=== PATIENT | female | born 1985 | race Caucasian/White ===

== ENCOUNTER 2020-04-22 17:27 | Emergency (ER) | payer SELFPAY ==
[~2020-04-22] VITALS: Ht 157.4 cm; Wt 68.0 kg
[2020-04-22] MEDS ORDERED: ANAPROX DS550 MG PO (18:05)
[2020-04-22] MEDS ORDERED: METHOCARBAMOL500 M1 PO (18:05)
== END 2020-04-22 18:14 | disposition home or self-care (01) ==
LOC: ED 17:27
DX: S16.1XXA Strain of muscle, fascia and tendon at neck level, initial encounter (principal); Z88.8 Allergy status to other drugs, medicaments and biological substances; W18.49XA Other slipping, tripping and stumbling without falling, initial encounter; Y93.89 Activity, other specified; Y92.89 Other specified places as the place of occurrence of the external cause; Y99.8 Other external cause status

== ENCOUNTER 2020-07-03 15:45 | Emergency (ER) | payer SELFPAY ==
[~2020-07-03] VITALS: Ht 157.4 cm; Wt 81.6 kg
[~2020-07-03 15:45] MED LIST: ANAPROX DS550 MG PO; METHOCARBAMOL500 M1 PO
[2020-07-03] MEDS ORDERED: ZYRTEC10 M2 PO (16:24)
[2020-07-03] MEDS ORDERED: AMOXICILLIN500 M2 PO (16:24)
== END 2020-07-03 16:29 | disposition home or self-care (01) ==
LOC: ED 15:45
DX: J03.90 Acute tonsillitis, unspecified (principal); F17.200 Nicotine dependence, unspecified, uncomplicated; Z88.1 Allergy status to other antibiotic agents

== ENCOUNTER 2020-10-25 16:13 | Emergency (ER) | payer OTHER ==
[~2020-10-25] VITALS: Ht 160 cm; Wt 72.6 kg
[~2020-10-25 16:13] MED LIST changes: +AMOXICILLIN500 M2 PO; +ZYRTEC10 M2 PO
[2020-10-25 16:49] LABS: BASO % 0.4 % (0.0-1.0); EOS # 0.1 10*3/uL (0.0-0.4); EOS % 0.7 % (1.0-4.0); LYMPH # 2.5 10*3/uL (1.3-4.4); LYMPH % 21.7 % (27.0-41.0); MEAN CELL VOLUME 91.5 fl (81.0-99.0); MEAN CORPUSCULAR HGB 31.1 pg (27.0-31.0); MEAN PLATELET VOLUME 11.1 fl (9.6-12.3); MONO # 0.8 10*3/uL (0.1-1.0); MONO % 6.7 % (3.0-9.0); NEUT % 70.2 % (47.0-73.0); PLATELET COUNT AUTOMATED 306 10*3/uL (130-400); RED BLOOD COUNT 4.37 10*6/uL (4.10-5.10); RED CELL DISTRI WIDTH 13.1 % (0-14.5); WHITE BLOOD COUNT 11.4 10*3/uL (4.8-10.8)
[2020-10-25 17:07] LABS: ALBUMIN 3.8 gm/dl (3.1-4.5); ALKALINE PHOSPHATASE 95 U/L (45-117); BUN 12 mg/dl (7-24); CHLORIDE 108 mmol/L (98-107); CREATININE 0.95 mg/dL (0.55-1.02); POTASSIUM 3.3 mmol/L (3.5-5.1); SGOT/AST 8 IU/L (3-35); SGPT/ALT 17 U/L (12-78); SODIUM 139 mmol/L (136-145); TOTAL PROTEIN 7.7 gm/dL (6.4-8.2)
[2020-10-25 17:19] LABS: TROPONIN I < 0.015 ng/ml (<0.045)
== END 2020-10-25 18:05 | disposition home or self-care (01) ==
LOC: ED 16:13
PROVIDERS: Physician Assistant
DX: F41.9 Anxiety disorder, unspecified (principal); R06.02 Shortness of breath; Z79.899 Other long term (current) drug therapy; Z88.1 Allergy status to other antibiotic agents